=== PATIENT | female | born 1995 | race Caucasian/White ===

== ENCOUNTER 2023-03-01 21:26 | Emergency (ER) | payer MEDICAID, OTHER ==
[~2023-03-01] VITALS: Ht 149.9 cm; Wt 97.5 kg
[2023-03-01] MEDS ORDERED: HYDROCODONE/ACETAMINOPHEN 5/325MG TABLET PO STA (21:57)
[2023-03-01] MEDS ORDERED: KETOROLAC 15MG/ML VIAL IM ONE (22:00)
[2023-03-01] MEDS ORDERED: ONDANSETRON 4MG ODT PO ONE (22:00)
[2023-03-02 00:11] VITALS: BP 135/75
== END 2023-03-02 00:13 | disposition home or self-care (01) ==
LOC: ER 21:26
DX: R10.9 Unspecified abdominal pain (principal); Z98.890 Other specified postprocedural states
CPT/HCPCS: 96372; 99283; J1885; Q0162